=== PATIENT | female | born 1940 | race Caucasian/White ===

== ENCOUNTER 2025-04-03 14:40 | Outpatient (CLI) | payer MEDICARE, MEDICAID, SELFPAY ==
[2025-04-03 15:15] LABS: Hematocrit 27.7 % (37.0-47.0); Hemoglobin 8.5 g/dL (12.2-16.2); Immature Granulocytes % 0.9 %; Mean Corpuscular HGB Conc 30.7 g/dL (31.8-35.4); Mean Corpuscular Hemoglobin 28.2 pg (27.0-31.2); Mean Corpuscular Volume 92.0 fl (81-99); Nucleated Red Blood Cells % 0 %; Platelet Count 235 K/mm3 (142-424); Red Blood Count 3.01 M/mm3 (4.20-5.40); Red Cell Distribution Width-SD 57.6 fL; White Blood Count 6.5 K/mm3 (4.8-10.8)
[2025-04-03 16:01] LABS: Anion Gap 11.9 mEq/L (5-15); Blood Urea Nitrogen 42 mg/dl (7-17); Calcium 9.5 mg/dl (8.4-10.2); Carbon Dioxide 30 mmol/L (22.0-30.0); Chloride 101 mmol/L (98-107); Creatinine,Serum 1.70 mg/dl (0.52-1.04); Estimated Glomerular Filt Rate 29 ml/min (>60); GFR (African American) 35 ML/MIN (>60); Glucose 114 mg/dl (74-100); Potassium 3.9 mmoL/L (3.5-5.1); Sodium 139 mmol/L (136-145)
== END 2025-04-03 23:59 | disposition home or self-care (01) ==
LOC: LAB 14:41
PROVIDERS: PCP Family Medicine; Visit Provider Nurse Practitioner
DX: I26.99 Other pulmonary embolism without acute cor pulmonale (principal); Z86.73 Personal history of transient ischemic attack (TIA), and cerebral infarction without residual deficits; R94.31 Abnormal electrocardiogram [ECG] [EKG]; D64.9 Anemia, unspecified; I10 Essential (primary) hypertension; E11.69 Type 2 diabetes mellitus with other specified complication
CPT/HCPCS: 36415; 80048; 85025